=== PATIENT | female | born 1935 | race Caucasian/White ===

== ENCOUNTER 2016-09-09 17:21 | Inpatient (IN) | payer OTHER ==
[~2016-09-09] VITALS: Ht 162.6 cm; Wt 70.3 kg
[2016-09-09 17:38] VITALS: BP 113/66; PULSE 75; RESP 20; TEMP 96.9; O2SAT 93
--- NOTE | 2016-09-09 17:45 | NUR ---
Blood drawn and sent to lab by phleb using 2 pt identifiers.
--- NOTE | 2016-09-09 17:47 | NUR ---
Patient triaged and placed in waiting room. VSS and patient appears in no acute distress at this time. Accompanied by son, awaiting available bed, and MD notified of need for MSE.
[2016-09-09 17:58] LABS: EOSINOPHILS # (AUTO) 0.3 K/uL (0.0-0.4); MEAN CORPUSCULAR HEMOGLOBIN 29 pg (27-31)
[2016-09-09 18:02] LABS: BASOPHILS # (AUTO) 0.2 K/uL (0.0-0.2); MONOCYTES # (AUTO) 0.7 K/uL (0.0-1.0); WHITE BLOOD COUNT (AUTO) 8.6 K/uL (4.8-10.8)
[2016-09-09 18:05] LABS: BASOPHILS % (AUTO) 2.5 % (0.0-2.0); EOSINOPHILS % (AUTO) 3.3 % (0.0-4.0); HEMATOCRIT 44.5 % (36-48); HEMOGLOBIN 13.9 g/dL (12.0-16.0); LYMPHOCYTES # (AUTO) 0.6 K/uL (1.0-5.5); LYMPHOCYTES % (AUTO) 6.7 % (20.5-51.5); MEAN CORPUSCULAR HGB CONC 31 % (32-36); MEAN CORPUSCULAR VOLUME 93 fL (79.0-98.0); MONOCYTES % (AUTO) 8.1 % (1.7-9.3); NEUTROPHILS # (AUTO) 6.8 K/uL (1.8-7.7); NEUTROPHILS % (AUTO) 79.4 % (40.0-70.0); RED BLOOD CELL COUNT(AUTO) 4.76 MIL/uL (4.2-6.2); RED CELL DISTRIBUTION WIDTH 16.5 % (9.0-15.0)
[2016-09-09 18:07] LABS: CALCIUM 9.8 mg/dL (8.4-11.0); CREATININE 1.71 mg/dL (0.55-1.30); GLUCOSE 104 mg/dL (70-99); POTASSIUM 3.9 mmol/L (3.5-5.1); SODIUM SERUM 157 mmol/L (136-145); UREA NITROGEN, BLOOD 38 mg/dL (8-21)
[2016-09-09 18:08] LABS: INR 1.3 (0.8-1.2); PROTHROMBIN TIME 14.7 SECS (9.5-12.5)
[2016-09-09 18:12] LABS: ALANINE AMINOTRANSFERASE 33 U/L (12-78); ALBUMIN 3.7 g/dL (3.4-4.8); ASPARTATE AMINOTRANSFERASE 29 U/L (10-37); TOTAL BILIRUBIN 1.3 mg/dL (0.0-1.0); TOTAL PROTEIN, SERUM 7.9 g/dL (6.4-8.3)
[2016-09-09 18:19] LABS: CHLORIDE 125 mmol/L (98-107)
[2016-09-09 18:20] LABS: ANION GAP < 3 (5-15)
--- NOTE | 2016-09-09 18:22 | NUR ---
Placed in room 03. Placed on front office coordinator, blood pressure machine and pulse oximeter. To gown for exam. Side rails up. Report given to Yuliana RN.
[2016-09-09 18:25] LABS: PLATELET COUNT (AUTO) 148 K/uL (130-430)
--- NOTE | 2016-09-09 18:30 | NUR ---
Patient AAOx2, forgetful. Patient seen with shortness of breath on room air, O2 saturation 95%, patient denies chest pain, cough. Patient's family provided a list of complaints given to triage nurse. Patient interviewed at bedside. Patient states she was "feeling weak" but is forgetful when answering questions. Lung sounds diminished bilaterally. Pitting edema noted in BLE 2+. Addendum: 09/09/16 at 1949 by MONET No other complaints/injuries per patient or noted.
--- NOTE | 2016-09-09 18:40 | NUR ---
Dr. Cabrera at bedside discussing plan of care with family
[2016-09-09] MEDS ORDERED: BUSP15TA3 PO (18:52)
[2016-09-09] MEDS ORDERED: SERT50TA12 PO (18:52)
[2016-09-09] MEDS ORDERED: DILT240C91 PO (18:52)
[2016-09-09] MEDS ORDERED: FURO-150 PO (18:52)
[2016-09-09] MEDS ORDERED: METO25TA6 PO (18:52)
[2016-09-09] MEDS ORDERED: FURO-149 PO (18:52)
[2016-09-09] MEDS ORDERED: APIX2.5T PO (18:52)
--- NOTE | 2016-09-09 18:52 | NUR ---
Medication reconciliation completed with information provided by son. Any prior medication reconciliation on file was reviewed and corrected.
[2016-09-09] MEDS ORDERED: NACL 0.9% 1,000 ML IV ONE (19:00)
[2016-09-09] MEDS ORDERED: cefTRIAXone 1 GM IVPB PREMIX 50 ML IV ONE (19:00)
--- NOTE | 2016-09-09 19:07 | NUR ---
Received report from MANISHA Ferrera. Care endorsed.
--- NOTE | 2016-09-09 19:08 | NUR ---
Attempted I&O carrillo catheter x2, unsuccessful. Patient unable to provide urine sample at this time. Endorsed to next shift nurse.
--- NOTE | 2016-09-09 19:10 | NUR ---
Patient AAO x3, laying in bed, RT at bedside, patient vital signs stable, HR: 110 and o2 sat 92%RA md aware. No acute distress noted. Patient unable to void at this time. Will continue to monitor.
[2016-09-09] MEDS ORDERED: LEVALBUTEROL HCL 0.63 MG/3 ML VIAL.NEB INH ONE (19:15)
[2016-09-09] MEDS ORDERED: PIPERACILLIN/TAZO 3.375 GM in NS 50 ML IV ONE (19:15)
[2016-09-09] MEDS ORDERED: IPRATROPIUM BROM 0.5 MG/2.5 ML VIAL.NEB (ATROVENT) INH ONE (19:15)
--- NOTE | 2016-09-09 19:20 | NUR ---
Patient unable to void, stating she would like to wait for to provide specimen because she "cannot go right now," made aware.
--- NOTE | 2016-09-09 19:25 | NUR ---
Patient son and at bedside. Family and patient refuse another straight cath to collect urine sample at this time. MD aware, patient unable to void. IV fluids running, patient tolerating well. Will continue to monitor.
[2016-09-09] MEDS ORDERED: PIPERACILLIN/TAZOBACTAM 3.375 GM/VIAL (ZOSYN) IV ONE ×2 (20:14)
--- NOTE | 2016-09-09 20:15 | NUR ---
Dr. Gonzalez called to ER for patient, to place her own admit orders.
[2016-09-09 20:20] VITALS: BP 124/93; PULSE 104; RESP 20; TEMP 96.5; O2SAT 96
[2016-09-09] MEDS ORDERED: DIGOXIN 0.5 MG/2 ML AMP IVP ONE (20:30)
--- NOTE | 2016-09-09 20:42 | NUR ---
Patient administered digoxin IVP, pre-cardiac and pos-cardiac strips in chart, patient tolerated well. Will continue to monitor. Family at bedside. No acute distress noted.
[2016-09-09] MEDS ORDERED: ONDANSETRON HCL 4 MG/2 ML VIAL IVP PRN (20:45)
--- NOTE | 2016-09-09 20:54 | NUR ---
Called floor for bed placement. Tele charge nurse to call back with room assignment.
[2016-09-09] MEDS ORDERED: SERTRALINE HCL 50 MG TABLET PO SCH (21:00)
--- NOTE | 2016-09-09 21:04 | NUR ---
Patient will be admitted to care of Dr. Gonzalez. Admitted to Tele unit. Will go to room 120. Belongings list completed. Summary report printed. Report will be given at bedside.
--- NOTE | 2016-09-09 21:04 | NUR ---
Transfer to tele room 120 via ACLS protocol. Licensed nurse present. IV present no signs or symptoms of infiltration.
[2016-09-09 21:06] VITALS: BP 124/93; PULSE 104; RESP 20; TEMP 96.5
--- NOTE | 2016-09-09 21:06 | NUR ---
Admission Note Received patient from ER with diagnosis of ATRIAL FIB. RVR. Initial Plan of Care discussed-patient verbalized understanding. Family at bedside. Oriented to room, call light, pain management and safety.
--- NOTE | 2016-09-09 21:15 | NUR ---
INITIAL ADMISSION NOTE Patient alert, awake, verbally responsive with confusion. No acute distress. respiration even and unlabored. Skin warm and dry to touch. IV intact to RAC, no redness, no swelling. Started to infusing NS bolus 2L from ER. Family at bedside. Discussed the safety issue, use call light when need help, and plan of care, verbally understanding. Safety measure maintained. Bed in low position, side rails up, bed alarm on. Call light within reached, Will continue to monitor.
[2016-09-09] MEDS: NACL 0.9% 1,000 ML IV SCH (21:26)
--- NOTE | 2016-09-09 21:29 | NUR ---
CONSULTATION PAGED REASON FOR CONSULTATION:AFIB WAS CONSULT CALLED?Y PERSON WHO WAS NOTIFIED:LINDA CONSULTING PHYSICIAN:KELLY CUNHA BACKHOE OPERATOR SPECIALTY:CARDIO BACKHOE OPERATOR PHONE NUMBER:[phone]
[2016-09-09] MEDS: METOPROLOL TARTRATE 25 MG TABLET PO SCH (22:26)
--- NOTE | 2016-09-09 22:41 | NUR ---
PAGED PAGED VIVIENNE CARDOZA AT [phone]KUSON DE LA TORRE TIM FEDERAL AID COORDINATOR.
--- NOTE | 2016-09-09 23:20 | NUR ---
ROUND Patient resting on the bed. No acute distress. Son at bedside. Safety measure maintained. Call light within reached. Continue to monitor.
[2016-09-10] VITALS (7 sets, daily range): BP systolic 103–149; BP diastolic 61–87; PULSE 64–120; RESP 19–32; TEMP 95.6–97.9; O2SAT 91–96
--- NOTE | 2016-09-10 00:10 | NUR ---
PATIENT TRIED TO GET OUT OF THE BED
--- NOTE | 2016-09-10 00:26 | NUR ---
2ND CALL OUT TO PAGED ERIKA TRAN AT [phone] SPOKE WITH MARIELLE.
--- NOTE | 2016-09-10 01:25 | NUR ---
PATIENT TRIED TO GET OUT OF BED AND SITTING ON THE EDGE OF THE BED
--- NOTE | 2016-09-10 02:20 | NUR ---
NOTE Changed patient. No acute distress. Patient stated that wanted to go home.
--- NOTE | 2016-09-10 03:40 | NUR ---
ROUND Patient resting on the bed. No acute distress. Respiration even and unlabored. Safety measure maintained. Call light within reached. Bed in low position, side rails up, bed alarm on. Will continue to monitor.
--- NOTE | 2016-09-10 04:10 | NUR ---
ROUND CIGARETTE PACKER assisted patient to the bathroom. No acute distress. Call light within reached. Continue to monitor.
--- NOTE | 2016-09-10 05:33 | NUR ---
ROUND Patient resting on the bed with eyes closed. No acute distress. Bed in low position, side rails up, bed alarm on. Continue to monitor.
[2016-09-10] MEDS ORDERED: DIGOXIN 0.5 MG/2 ML AMP IVP ONE (06:00)
--- NOTE | 2016-09-10 06:25 | NUR ---
IV RE-INSERTION: Patient pulled out IV, minimal bleeding noted. IV tip intact. Patient no acute distress. Restarted on left hand gauge 22 . Successful after one attempt. Will continue to monitor.
--- NOTE | 2016-09-10 06:35 | NUR ---
CLOSING NOTE Patient alert, awake, verbally responsive with confusion. No acute distress. Skin warm and dry to touch. IV intact to RAC, no redness, no swelling. All needs met. Hourly rounding during shift. Safety measure maintained. Bed in low position, side rails up, bed alarm on. Call light within reached. Noted patient with episode of anxiety and will increase the respiration rate and slight SOB during episode. Stayed with patient will calm her down. Will endorse to morning shift nurse.
[2016-09-10 07:02] LABS: ALANINE AMINOTRANSFERASE 32 U/L (12-78); ALBUMIN 3.3 g/dL (3.4-4.8); ANION GAP 5 (5-15); ASPARTATE AMINOTRANSFERASE 34 U/L (10-37); CALCIUM 8.9 mg/dL (8.4-11.0); CREATININE 1.64 mg/dL (0.55-1.30); GLUCOSE 99 mg/dL (70-99); POTASSIUM 3.8 mmol/L (3.5-5.1); TOTAL BILIRUBIN 1.2 mg/dL (0.0-1.0); TOTAL PROTEIN, SERUM 7.1 g/dL (6.4-8.3); UREA NITROGEN, BLOOD 35 mg/dL (8-21)
[2016-09-10 07:08] LABS: CHLORIDE 126 mmol/L (98-107); SODIUM SERUM 160 mmol/L (136-145)
--- NOTE | 2016-09-10 07:16 | NUR ---
CALLED ATTENDING MD DR NORMAN, RE: CRITICAL LABS, ORDER FOR ABG. SPOKE TO KAMLESH
--- NOTE | 2016-09-10 07:25 | NUR ---
NOTE Endorse to morning shift Deepthi regarding the critical lab result, sodium-160 and chloride-126. Dr. Brown called and waited to call back.
--- NOTE | 2016-09-10 07:53 | NUR ---
NEPHROLOGY CONSULT WAS CALLED TO DR DANIELS, DR POWELL PRODUCT TECHNICIAN, RE: ELEVATED BUN AND CREATININE. SPOKE TO MADELINE
[2016-09-10] MEDS ORDERED: DILTIAZEM HCL 25 MG/5 ML VIAL IVP PRN (08:00)
[2016-09-10] MEDS: D5W 1,000 ML IV SCH ×2 (08:00→20:58)
[2016-09-10] MEDS: NACL 0.9% 1,000 ML IV SCH (08:19)
[2016-09-10] MEDS: DILTIAZEM HCL 240 MG CAP.SR.24H PO SCH (08:20)
[2016-09-10] MEDS: ASPIRIN 81 MG TAB.CHEW PO SCH (08:20)
[2016-09-10] MEDS: METOPROLOL TARTRATE 25 MG TABLET PO SCH ×2 (08:21→20:51)
[2016-09-10] MEDS ORDERED: APIXABAN 2.5 MG TABLET PO SCH (09:00)
[2016-09-10] MEDS ORDERED: FUROSEMIDE 20 MG/2 ML VIAL IVP ONE (09:00)
[2016-09-10] MEDS ORDERED: busPIRone HCL 5 MG TABLET PO SCH (09:00)
--- NOTE | 2016-09-10 09:24 | NUR ---
Nutrition Update Venkat Scale 16 noted. Pt admitted for atr fibr w/ rapid ventricular response. Diet: 2 gm Na BMI: 27.1 kg/m2 RD to follow per nutrition care standards.
[2016-09-10] MEDS ORDERED: ALBUTEROL SULFATE 0.083% 2.5 MG/3 ML VIAL.NEB INH ONE (09:29)
[2016-09-10] MEDS: ALBUTEROL SULFATE 0.083% 2.5 MG/3 ML VIAL.NEB INH SCH ×4 (09:30→20:24)
--- NOTE | 2016-09-10 09:50 | NUR ---
DR POWELL IN TO SEE PATIENT. NEW ORDERS. D5W UP TO 100/HR. DC'Rosio ANDRADE.
[2016-09-10] MEDS: cefTRIAXone 1 GM in D5W 50 ML IV SCH (10:27)
[2016-09-10] MEDS: AZITHROMYCIN 500 MG in NS 250 ML IV SCH (10:27)
--- NOTE | 2016-09-10 11:05 | NUR ---
PATIENT IS SLEEPING, NO SIGNS OF DISTRESS BUT CONTINUES TO HAVE TACHYPNEA
--- NOTE | 2016-09-10 11:40 | NUR ---
CALLED PSYCH CONSULT TO DR FIELDS, RE: PSYCHOTIC, HALLUCINATIONS. SPOKE TO MADELINE
--- NOTE | 2016-09-10 12:38 | NUR ---
SISTER AT BEDSIDE ASSISTING PATIENT WITH LUNCH
[2016-09-10] MEDS: DIGOXIN 0.5 MG/2 ML AMP IVP SCH ×2 (13:48→21:43)
--- NOTE | 2016-09-10 15:35 | NUR ---
PATIENT IS SLEEPING. NOSE, FINGERS AND TOES ARE NO LONGER CYANOTIC. PT STILL HAS TACHYPNEA AND LABORED BREATHING BUT APPEARS CALM. SISTER, AND SON ARE AT BEDSIDE
--- NOTE | 2016-09-10 16:05 | NUR ---
SPOKE W DR POWELL RE CONSULTING PHYSICIAN ASKING ABOUT PT GETTING LASIX. PER DR POWELL HE DOES NOT WANT TO GIVE LASIX AT THIS TIME AND WILL CALL CONSULTING PHYSICIAN TO DISCUSS PT POC.
[2016-09-10 17:14] LABS: BASOPHILS # (AUTO) 0.1 K/uL (0.0-0.2); BASOPHILS % (AUTO) 1.3 % (0.0-2.0); EOSINOPHILS # (AUTO) 0.3 K/uL (0.0-0.4); EOSINOPHILS % (AUTO) 3.5 % (0.0-4.0); HEMATOCRIT 42.8 % (36-48); HEMOGLOBIN 13.3 g/dL (12.0-16.0); LYMPHOCYTES # (AUTO) 0.7 K/uL (1.0-5.5); LYMPHOCYTES % (AUTO) 10.1 % (20.5-51.5); MEAN CORPUSCULAR HEMOGLOBIN 29 pg (27-31); MEAN CORPUSCULAR HGB CONC 31 % (32-36); MONOCYTES # (AUTO) 0.4 K/uL (0.0-1.0); MONOCYTES % (AUTO) 6.1 % (1.7-9.3); NEUTROPHILS # (AUTO) 5.7 K/uL (1.8-7.7); RED BLOOD CELL COUNT(AUTO) 4.52 MIL/uL (4.2-6.2); RED CELL DISTRIBUTION WIDTH 16.6 % (9.0-15.0); WHITE BLOOD COUNT (AUTO) 7.2 K/uL (4.8-10.8)
[2016-09-10 17:18] LABS: MEAN CORPUSCULAR VOLUME 95 fL (79.0-98.0)
[2016-09-10 17:35] LABS: PLATELET COUNT (AUTO) 130 K/uL (130-430)
--- NOTE | 2016-09-10 17:48 | NUR ---
PATIENT IS SLEEPING. ASSISTED WITH DINNER BY WHO REMAINS AT BEDSIDE. PT IS EASY TO AWAKEN. NO ACUTE DISTRESS. CONTINUES TO BREATHE HEAVILY. IV INFUSING AT 100ML/HR PER ORDERS. LUNG SOUNDS: CRACKLES AND RALES. MD IS AWARE. NON-PITTING EDEMA TO ALL EXTREMITIES.
--- NOTE | 2016-09-10 20:00 | NUR ---
NOTES; SEEN PT IN BED, RESTING QUIETLY, EASILY AROUSED. VITAL SIGNS STABLE, AFEBRILE. RESPIRATION EVEN AND UNLABORED WHILE SLEEPING. NO APPARENT DISTRESS NOTED. GENERALIZED EDEMA NOTED. ORDERED IVF INFUSING WELL ON THE LEFT HAND, GAUGE 22, PATENT. NO SIGNS OF INFECTION NOTED ON IV SITE. NO FACIAL GRIMACING OF PAIN NOTED. BED LOCKED AND IN LOW POSITION, SIDE RAILS UP X3, BED ALARM ON. CALL LIGHT WITHIN REACH. ROOM CLOSE TO NURSES STATION. SAFETY MEASURES IN PROGRESS. FAMILY AT BEDSIDE WITH GOOD SUPPORT. WILL CONTINUE TO MONITOR.
[2016-09-10] MEDS: APIXABAN 2.5 MG TABLET PO SCH (20:50)
--- NOTE | 2016-09-10 21:02 | NUR ---
NOTES; IN BED ,AWAKE , LABORED BREATHING NOTED. ON O2 AT 2L VIA NASAL CANNULAR, O2 SAT 95%. BP FOUND TO BE 140/92, HR 139. SCHEDULED LOPRESSOR AND ELIQUIS PO ADMINISTERED. PT TOLERATED MEDICATION WELL. FAMILY AT BEDSIDE WITH GOOD SUPPORT. WILL CONTINUE TO MONITOR.
--- NOTE | 2016-09-10 22:00 | NUR ---
NOTES; RECHECKED BP, 139/86, HR IN HIGH 90'S. SOB ON EXERTION. ON O2 VIA NASAL CANNULAR. O2 SAT 93-95%. HUASBAND AT BEDSIDE WITH GOOD SUPPORT. SAFETY MEASURES IN PROGRESS.
[2016-09-11] VITALS (9 sets, daily range): BP systolic 115–161; BP diastolic 73–91; PULSE 71–110; RESP 20–23; TEMP 97.2–98.6; O2SAT 92–97; Ht 162.6 cm; Wt 70.3 kg
--- NOTE | 2016-09-11 | NUR ---
NOTES; AWAKE, CONFUSED. BED NICHOLS PROVIDED BY MARTHA GANDHI. PT VOIDED FREELY. GIGI CARE PROVIDED BY [place]. REPOSITIONED FOR COMFORT. SAFETY MEASURES I PROGRESS.
[2016-09-11] MEDS: ALBUTEROL SULFATE 0.083% 2.5 MG/3 ML VIAL.NEB INH SCH ×7 (00:25→23:06)
--- NOTE | 2016-09-11 00:55 | NUR ---
NOTES; PT IS RESTLESS, TAKING NASAL CANNULAR OFF AND ATTEMPTING TO PULL OUT IV. BP 132/85, HR IS IN THE 110'S. DR NORMAN PAGED TO BE NOTIFIED. WAITING FOR MD TO CALL BACK.
--- NOTE | 2016-09-11 00:55 | NUR ---
PAGED: I PAGED DR. NORMAN @ [phone] I SPOKE WITH AMIE CALDERON I CALLED SECOND TIME @ 0111 I SPOKE WITH JOSÉ MIGUEL CALDERON NUMBER I CALLED [phone]
--- NOTE | 2016-09-11 01:24 | NUR ---
DR. NORMAN CALLED BACK @ [phone]
[2016-09-11] MEDS ORDERED: LORazepam 1 MG TABLET PO ONE (01:30)
--- NOTE | 2016-09-11 01:31 | NUR ---
NOTES; DR. NORMAN CALLED BACK, SPOKE WITH MD AND INFORMED HER ABOUT PT TELEMETRY RHYTHM AFIB IN THE 110'S AND PT RESTLESS. ATIVAN 0.5MG PO X1 ORDERED.
--- NOTE | 2016-09-11 01:52 | NUR ---
NOTES; ATIVAN ADMINISTERED FOR RESTLESSNESS.
--- NOTE | 2016-09-11 01:52 | NUR ---
NOTES; ATIVAN 0.5MG PO ADMINISTERED.
--- NOTE | 2016-09-11 03:00 | NUR ---
NOTES; PT IS STILL RESTLESS. MADE COMFORTABLE, BP 141/89, HR 110'S. RESPI 22, O2 SAT 92-94% ON 2L OF O2. SAFETY MEASURES IN PROGRESS. WILL CONTINUE TO MONITOR.
--- NOTE | 2016-09-11 04:50 | NUR ---
NOTES; IV ON THE LEFT HAND OCCLUDED. RESTARTED NEW IV ON THE LEFT FOREARM, GAUGE 22. PATENT. OLD IV REMOVED WITH CATHETER TIP INTACT. DRESSING APPLIED.
[2016-09-11] MEDS: D5W 1,000 ML IV SCH (06:00)
--- NOTE | 2016-09-11 06:05 | NUR ---
NOTES; IVF DISCONTINUED PER MD ORDER.
--- NOTE | 2016-09-11 06:27 | NUR ---
NOTES; PT IS CONFUSED, RESTLESS. PULLING NASAL CANNULAR AND IV LINE. BP FOUND TO BE 152/100, TELEMETRY RHYTHM AFIB ,HR 115'S. RESPIRATION 26, O2 SAT 93-96% ON 2L OF O2, LABORED BREATHING. LUNG SOUNDS CRACKLES. REPOSITIONED UP IN BED. RN COVERING AND CHARGE NURSE AT BEDSIDE. DR AMA PAK. WAITING FOR MD TO CALL BACK.
--- NOTE | 2016-09-11 06:30 | NUR ---
Attempted/unable to page Dr Dunlap called , was immediately put on hold by exchange (call was not answered). Hung up, will call admitting MD (Dr Brown)
--- NOTE | 2016-09-11 06:41 | NUR ---
Paged Dr Brown, [facility]
--- NOTE | 2016-09-11 06:54 | NUR ---
NOTES DR POWELL CALLED. UPDATED MD WITH PT STATUS CHANGE. NEW ORDER OF LASIX 20MG IVP X1, CARDIZEM 5MG IVP X1 NOW, BNP, AND TO STOP IVF. RN COVERING AND CHARGE NURSE INFORMED.
[2016-09-11 06:57] LABS: BASOPHILS % (AUTO) 0.6 % (0.0-2.0); EOSINOPHILS # (AUTO) 0.3 K/uL (0.0-0.4); EOSINOPHILS % (AUTO) 3.3 % (0.0-4.0); HEMATOCRIT 43.7 % (36-48); HEMOGLOBIN 13.7 g/dL (12.0-16.0); LYMPHOCYTES # (AUTO) 0.5 K/uL (1.0-5.5); LYMPHOCYTES % (AUTO) 6.9 % (20.5-51.5); MEAN CORPUSCULAR HEMOGLOBIN 29 pg (27-31); MEAN CORPUSCULAR HGB CONC 31 % (32-36); MEAN CORPUSCULAR VOLUME 93 fL (79.0-98.0); MONOCYTES # (AUTO) 0.5 K/uL (0.0-1.0); MONOCYTES % (AUTO) 6.2 % (1.7-9.3); NEUTROPHILS # (AUTO) 6.3 K/uL (1.8-7.7); PLATELET COUNT (AUTO) 117 K/uL (130-430); RED BLOOD CELL COUNT(AUTO) 4.68 MIL/uL (4.2-6.2); RED CELL DISTRIBUTION WIDTH 15.9 % (9.0-15.0); WHITE BLOOD COUNT (AUTO) 7.6 K/uL (4.8-10.8)
[2016-09-11] MEDS ORDERED: DILTIAZEM HCL 25 MG/5 ML VIAL IVP ONE (07:00)
[2016-09-11] MEDS ORDERED: FUROSEMIDE 20 MG/2 ML VIAL IVP ONE ×2 (07:00→10:00)
[2016-09-11 07:11] LABS: ALANINE AMINOTRANSFERASE 31 U/L (12-78); ALBUMIN 3.2 g/dL (3.4-4.8); ANION GAP 4 (5-15); ASPARTATE AMINOTRANSFERASE 31 U/L (10-37); CALCIUM 9.2 mg/dL (8.4-11.0); CREATININE 1.12 mg/dL (0.55-1.30); GLUCOSE 134 mg/dL (70-99); POTASSIUM 3.5 mmol/L (3.5-5.1); SODIUM SERUM 152 mmol/L (136-145); TOTAL BILIRUBIN 1.3 mg/dL (0.0-1.0); TOTAL PROTEIN, SERUM 7.1 g/dL (6.4-8.3); UREA NITROGEN, BLOOD 26 mg/dL (8-21)
--- NOTE | 2016-09-11 07:20 | NUR ---
NOTES; CARDIZEM IVP AND LASIX IVP ADMINISTERED BY RN COVERING PER MD ORDER.
[2016-09-11 07:27] LABS: CHLORIDE 121 mmol/L (98-107)
--- NOTE | 2016-09-11 07:35 | NUR ---
Paged Dr Brown, [facility]
--- NOTE | 2016-09-11 07:50 | NUR ---
NOTES; DR NORMAN CALLED, SPOKE WITH MD. INFORMED MD ABOUT PT STATUS CHANGE. CLARIFIED WITH SCHEDULED CARDIZEM ORDER TO BE GIVEN AT 0900. MD STATED YES TO GIVEN SCHEDULE DOSE AT 0900. CRITICAL CHLORIDE RESULTS INFORMED . NEW ORDERS RECEIVED . REPORT GIVEN TO INCOMING NURSE.
--- NOTE | 2016-09-11 08:00 | NUR ---
AM Initial Notes Pt aaox1, restless and confused but follows commands. No complain of pain or discomfort. Wheezing and slightly labored breathing noted. Pt on O2 via nasal canula @ 2.5L. school bus monitor in place reading uncontrolled A-fib 107. Generalized edema noted. Lasix iv administered half an hour ago. Generalized edema noted. Johnson catheter inserted. Repositioned and kept comfortable. Fall and safety precautions enforced with ID band, bed alarm armed, 3 rails up and close to nurse's station. Will monitor.
[2016-09-11 08:04] LABS: ABG TOTAL HEMOGLOBIN 14.6 G/dL (12.0-18.0); BLOOD GAS BASE EXCESS 0.2 mmol/L (-3.0-3.0); BLOOD GAS COHb% 0.9 % (0.5-1.5); BLOOD GAS PH 7.426 (7.350-7.450); BLOOD O2Hb% 90.6 % (94.0-97.0)
[2016-09-11 08:05] LABS: BLOOD GAS HHB 8.3 % (0.0-6.0)
[2016-09-11] MEDS: cefTRIAXone 1 GM in D5W 50 ML IV SCH (08:18)
[2016-09-11 08:33] LABS: BILIRUBIN,URINE NEGATIVE (NEGATIVE); BLOOD, URINE NEGATIVE (NEGATIVE); CLARITY/URINE CLEAR (CLEAR); COLOR,URINE YELLOW (YELLOW); GLUCOSE,URINE NEGATIVE (NEGATIVE); KETONES,URINE NEGATIVE (NEGATIVE); LEUKOCYTE ESTERASE ,URINE NEGATIVE (NEGATIVE); NITRITE, URINE NEGATIVE (NEGATIVE); PROTEIN URINE NEGATIVE (NEGATIVE)
--- NOTE | 2016-09-11 09:00 | NUR ---
Dr. Kevin [place] doing rounds. Plan of care discussed with family at bedside.
[2016-09-11] MEDS: AZITHROMYCIN 500 MG in NS 250 ML IV SCH (09:21)
--- NOTE | 2016-09-11 10:00 | NUR ---
Rounds Pt asleep but tried to awaken and went back to sleep. Refused to eat breakfast. Unable to medicate 0900 scheduled meds due to patient not fully awake. Mild labored breathing and shortness of breath noted. Repositioned and kept comfortable. Will monitor.
[2016-09-11] MEDS: APIXABAN 2.5 MG TABLET PO SCH ×2 (10:24→20:59)
[2016-09-11] MEDS: DILTIAZEM HCL 240 MG CAP.SR.24H PO SCH (10:24)
[2016-09-11] MEDS: buPROPion HCL 100 MG TABLET.SA PO SCH (10:25)
[2016-09-11] MEDS: ASPIRIN 81 MG TAB.CHEW PO SCH (10:25)
[2016-09-11] MEDS: METOPROLOL TARTRATE 25 MG TABLET PO SCH ×2 (10:25→20:59)
--- NOTE | 2016-09-11 12:00 | NUR ---
Rounds Pt asleep but awakened to shaking. Refused lunch and went back to sleep. No distress noted. Repositioned and kept comfortable. Will monitor.
--- NOTE | 2016-09-11 13:37 | NUR ---
Rounds Pt asleep. No signs of facial grimacing for pain or discomfort. No sob, difficulty breathing or distress noted. O2 via nasal canula @ 2.5L in place. Repositioned and kept comfortable. Will monitor.
--- NOTE | 2016-09-11 15:24 | NUR ---
Rounds Pt asleep. No significant changes noted. Will continue to monitor.
--- NOTE | 2016-09-11 17:16 | NUR ---
Rounds Pt asleep but awakened by shaking. Pt states she is tired and went back to sleep. No sob or difficulty breathing noted. Repositioned and kept comfortable. Will monitor.
--- NOTE | 2016-09-11 18:30 | NUR ---
Closing notes Pt asleep. Tried to awaken to eat dinner but went back to sleep and refused to eat dinner. No sob, difficulty breathing or distress noted. Repositioned and kept comfortable. Will endorse care to incoming nurse.
--- NOTE | 2016-09-11 19:55 | NUR ---
NOTES; RECEIVED PT IN BED, SLEEPING. OPEN EYES TO TOUCH THEN FALLS ASLEEP AGAIN. NO ACUTE DISTRESS NOTED. NO SOB OR NASAL FLARING NOTED. PT APPEARED TO BE COMFORTABLE. VITAL SIGNS STABLE. PT IS ON CONTINUOUS HEALTH EVALUATOR ,RHYTHM IS AFIB. VITAL SIGNS STABLE, AFEBRILE. IV SALINE LOCK ON THE LEFT FOREARM, GAUGE 22, PATENT. NO SIGNS OF INFECTION NOTED ON IV SITE. RT ARM EDEMATOUS NOTED. LEFT ARM BRUISES NOTED. NO FACIAL GRIMACING OF PAIN NOTED. REPOSITIONED FOR COMFORT. CALL LIGHT WITHIN REACH. BED LOCKED AND IN LOW POSITION, SIDE RAILS UP X3, BED ALARM ON. WILL CONTINUE TO MONITOR.
[2016-09-11] MEDS: methylPREDNISolone SOD SUCC 40 MG/ML VIAL IVP SCH (20:51)
--- NOTE | 2016-09-11 21:04 | NUR ---
NOTES; SCHEDULED PO MEDICATION CRUSHED AND ADMINISTERED WITH APPLE SAUCE.
--- NOTE | 2016-09-11 21:40 | NUR ---
NOTES; MOUTH CARE AND BED BATH GIVEN BY MEERA GANDHI. LINEN CHANGED. SAFETY MEASURES IN PROGRESS.
--- NOTE | 2016-09-11 22:00 | NUR ---
NOTES; Pt appeared to be sleeping. No signs of facial grimacing for pain or discomfort. No sob, difficulty breathing or distress noted. O2 via nasal canula @ 2L in place. O2 sat 96%. Repositioned and kept comfortable. Will monitor.
[2016-09-12] MEDS: ALBUTEROL SULFATE 0.083% 2.5 MG/3 ML VIAL.NEB INH SCH ×6 (03:05→23:00)
[2016-09-12 04:40] VITALS: BP 132/88; PULSE 63; RESP 21; TEMP 97.4; O2SAT 93
--- NOTE | 2016-09-12 06:18 | NUR ---
NOTES; SLEEPING, EASILY AROUSED, ANSWERS QUESTION APPROPRIATELY. NO ACUTE DISTRESS NOTED. NO SOB OR NASAL FLARING NOTED. PT APPEARED TO BE COMFORTABLE. VITAL SIGNS STABLE. PT IS ON CONTINUOUS SENIOR ORACLE APPLICATIONS DEVELOPER ,RHYTHM IS AFIB. IV SALINE LOCK ON THE LEFT FOREARM, GAUGE 22, PATENT. NO FACIAL GRIMACING OF PAIN NOTED. DENIES ANY PAIN ATV THSI TIME. REPOSITIONED FOR COMFORT. CALL LIGHT WITHIN REACH. BED LOCKED AND IN LOW POSITION, SIDE RAILS UP X3, BED ALARM ON. CALL LIGHT WITHIN REACH. WILL CONTINUE TO MONITOR.
[2016-09-12 06:34] LABS: BASOPHILS % (AUTO) 0.2 % (0.0-2.0); EOSINOPHILS % (AUTO) 0.3 % (0.0-4.0); HEMATOCRIT 44.1 % (36-48); HEMOGLOBIN 13.8 g/dL (12.0-16.0); LYMPHOCYTES # (AUTO) 0.3 K/uL (1.0-5.5); LYMPHOCYTES % (AUTO) 4.5 % (20.5-51.5); MEAN CORPUSCULAR HEMOGLOBIN 29 pg (27-31); MEAN CORPUSCULAR HGB CONC 31 % (32-36); MEAN CORPUSCULAR VOLUME 93 fL (79.0-98.0); MONOCYTES # (AUTO) 0.1 K/uL (0.0-1.0); MONOCYTES % (AUTO) 1.9 % (1.7-9.3); NEUTROPHILS # (AUTO) 5.2 K/uL (1.8-7.7); NEUTROPHILS % (AUTO) 93.1 % (40.0-70.0); PLATELET COUNT (AUTO) 109 K/uL (130-430); RED BLOOD CELL COUNT(AUTO) 4.73 MIL/uL (4.2-6.2); WHITE BLOOD COUNT (AUTO) 5.6 K/uL (4.8-10.8)
[2016-09-12 06:55] LABS: ALANINE AMINOTRANSFERASE 27 U/L (12-78); ALBUMIN 2.8 g/dL (3.4-4.8); ANION GAP 7 (5-15); ASPARTATE AMINOTRANSFERASE 27 U/L (10-37); CHLORIDE 116 mmol/L (98-107); GLUCOSE 126 mg/dL (70-99); POTASSIUM 3.7 mmol/L (3.5-5.1); SODIUM SERUM 150 mmol/L (136-145); TOTAL BILIRUBIN 1.5 mg/dL (0.0-1.0); TOTAL PROTEIN, SERUM 6.6 g/dL (6.4-8.3); UREA NITROGEN, BLOOD 19 mg/dL (8-21)
--- NOTE | 2016-09-12 08:00 | NUR ---
AM Initial Notes Pt aaox2 with confusion and forgetfulness. No complaints of pain or discomfort. No sob, difficulty breathing or distress noted. O2 via nasal canula @ 2L in place. metal buggy operator in place. IV to left forearm #22g saline locked patent and flushing. Johnson catheter in place with mary kate colored urine noted to bag. Re-educated about fall and safety precaution. Reposition and kept comfortable. Call light within reach. Will monitor.
[2016-09-12 08:14] VITALS: BP 113/64; PULSE 70; RESP 20; TEMP 97.6; O2SAT 93
[2016-09-12] MEDS: cefTRIAXone 1 GM in D5W 50 ML IV SCH (08:22)
[2016-09-12] MEDS: AZITHROMYCIN 500 MG in NS 250 ML IV SCH (09:12)
[2016-09-12] MEDS: buPROPion HCL 100 MG TABLET.SA PO SCH (09:16)
[2016-09-12] MEDS: DILTIAZEM HCL 240 MG CAP.SR.24H PO SCH (09:16)
[2016-09-12] MEDS: APIXABAN 2.5 MG TABLET PO SCH ×2 (09:16→21:07)
[2016-09-12] MEDS: ASPIRIN 81 MG TAB.CHEW PO SCH (09:17)
[2016-09-12] MEDS: METOPROLOL TARTRATE 25 MG TABLET PO SCH ×2 (09:17→21:07)
[2016-09-12] MEDS: methylPREDNISolone SOD SUCC 40 MG/ML VIAL IVP SCH ×2 (09:19→22:33)
--- NOTE | 2016-09-12 10:00 | NUR ---
Rounds Pt asleep. No signs of facial grimacing for pain or discomfort. No distress noted. Repositioned and kept comfortable. will monitor.
[2016-09-12 11:50] VITALS: BP 120/79; PULSE 75; RESP 20; TEMP 98.1; O2SAT 95
--- NOTE | 2016-09-12 12:00 | NUR ---
Rounds Pt awake about to eat lunch. No complaints of pain or discomfort. No distress noted. Repositioned and kept comfortable. Will monitor.
--- NOTE | 2016-09-12 14:00 | NUR ---
Rounds Pt asleep. No significant changes noted. Will monitor.
--- NOTE | 2016-09-12 16:00 | NUR ---
Rounds Pt awake resting in bed with no complaints of pain or discomfort. No sob, difficulty breathing or distress noted. O2 via nasal canula @ 2L in place. Repositioned and kept comfortable. Encouraged to call for assistance. Fall and safety precautions enforced. Will monitor.
[2016-09-12 16:14] VITALS: BP 122/74; PULSE 75; RESP 20; TEMP 98.3; O2SAT 97
--- NOTE | 2016-09-12 18:37 | NUR ---
Closing notes Pt awake with at bedside. No significant changes noted. Repositioned and kept comfortable. Will endorse care to incoming nurse.
[2016-09-12] MEDS: D5W 1,000 ML IV SCH (19:28)
[2016-09-12 19:30] VITALS: BP 134/82; PULSE 53; RESP 16; TEMP 97.9; O2SAT 95
--- NOTE | 2016-09-12 19:30 | NUR ---
notes received the pt from the day nurse,pt a/a/ox2 .family member is at the bedside.pt denies pain and sob.o2 via nc in place at 2l/min. monitor in place and shows a fib.iv intact to lt forearm ,no rednes or swelling noted.carrillo catheter intact and draining clear yellow urine.call light within reach ,safety measures in progress.will continue to monitor.
--- NOTE | 2016-09-12 20:29 | NUR ---
notes pt found trying to get out of the bed.iv found out.pt confused .assisted back to bed reoriented to time and place.bed alarm is on.will re insert the iv soon.
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
--- NOTE | 2016-09-12 23:36 | NUR ---
notes pt awake ,remains confused.instructed to stay in bed,educated on the use of the call light.continue to monitor.
[2016-09-12 23:43] VITALS: BP 130/85; PULSE 105; RESP 22; TEMP 97.4
--- NOTE | 2016-09-13 01:30 | NUR ---
notes pt sleeping.bed alarm is on side rails are up.call light within reach.continue to monitor.
[2016-09-13] MEDS: ALBUTEROL SULFATE 0.083% 2.5 MG/3 ML VIAL.NEB INH SCH ×6 (03:00→23:00)
--- NOTE | 2016-09-13 03:12 | NUR ---
notes pt remains asleep,call light within reach.continue to monitor.
[2016-09-13 03:44] VITALS: BP 142/79; PULSE 66; RESP 21; TEMP 97.6; O2SAT 93
--- NOTE | 2016-09-13 05:04 | NUR ---
notes pt awake ,confused.keeps pulling the o2 off.and is trying to pull out the iv.pt repositioned,o2 reapplied.pt educated on the iv tubbing and was instructed not to pull on the tubbing.call light within reach.continue to monitor.
--- NOTE | 2016-09-13 06:32 | NUR ---
CLOSING NOTES PT AWAKE ,REMAINS CONFUSED.WILL ENDORSE THE CARE OF THE PT TO THE DAY NURSE.
--- NOTE | 2016-09-13 06:48 | NUR ---
NOTES PORT.CXR TAKEN LABS DRAWN BY THE DEICER KIT ASSEMBLER.
[2016-09-13 06:52] LABS: ALANINE AMINOTRANSFERASE 29 U/L (12-78); ALBUMIN 2.9 g/dL (3.4-4.8); ANION GAP 5 (5-15); ASPARTATE AMINOTRANSFERASE 26 U/L (10-37); CALCIUM 9.5 mg/dL (8.4-11.0); CHLORIDE 114 mmol/L (98-107); CREATININE 1.12 mg/dL (0.55-1.30); GLUCOSE 142 mg/dL (70-99); POTASSIUM 3.5 mmol/L (3.5-5.1); SODIUM SERUM 147 mmol/L (136-145); TOTAL BILIRUBIN 1.2 mg/dL (0.0-1.0); TOTAL PROTEIN, SERUM 7.1 g/dL (6.4-8.3); UREA NITROGEN, BLOOD 32 mg/dL (8-21)
[2016-09-13 07:00] LABS: BASOPHILS % (AUTO) 0.2 % (0.0-2.0); EOSINOPHILS % (AUTO) 0.1 % (0.0-4.0); HEMATOCRIT 46.3 % (36-48); HEMOGLOBIN 14.2 g/dL (12.0-16.0); LYMPHOCYTES # (AUTO) 0.3 K/uL (1.0-5.5); LYMPHOCYTES % (AUTO) 2.6 % (20.5-51.5); MEAN CORPUSCULAR HEMOGLOBIN 28 pg (27-31); MEAN CORPUSCULAR HGB CONC 31 % (32-36); MEAN CORPUSCULAR VOLUME 92 fL (79.0-98.0); MONOCYTES # (AUTO) 0.3 K/uL (0.0-1.0); MONOCYTES % (AUTO) 3.2 % (1.7-9.3); NEUTROPHILS # (AUTO) 9.7 K/uL (1.8-7.7); NEUTROPHILS % (AUTO) 93.9 % (40.0-70.0); PLATELET COUNT (AUTO) 118 K/uL (130-430); RED BLOOD CELL COUNT(AUTO) 5.02 MIL/uL (4.2-6.2); RED CELL DISTRIBUTION WIDTH 16.1 % (9.0-15.0)
[2016-09-13 07:24] LABS: WHITE BLOOD COUNT (AUTO) 10.3 K/uL (4.8-10.8)
[2016-09-13 08:00] VITALS: BP 149/96; PULSE 59; RESP 18; TEMP 97.1; O2SAT 97
--- NOTE | 2016-09-13 08:00 | NUR ---
OPENING NOTE: RECEIVED REPORT FROM NIGHT NURSE. PATIENT IS RESTING COMFORTABLY IN BED. NO S/S OF DISTRESS OR SOB. PATIENT IS AWAKE BUT CONFUSED. VITAL SIGNS WNL, ASSESSMENT COMPLETE. IV IS PATENT AND INFUSING. ARMENTA DRAINING TO GRAVITY WITH LUCA COLORED URINE. CALL LIGHT IN REACH, BED IN LOWEST POSITION, AND WILL CONTINUE TO MONITOR.
[2016-09-13] MEDS: methylPREDNISolone SOD SUCC 40 MG/ML VIAL IVP SCH ×2 (08:47→22:04)
[2016-09-13] MEDS: cefTRIAXone 1 GM in D5W 50 ML IV SCH (08:47)
[2016-09-13] MEDS: buPROPion HCL 100 MG TABLET.SA PO SCH (08:47)
[2016-09-13] MEDS: ASPIRIN 81 MG TAB.CHEW PO SCH (08:47)
[2016-09-13] MEDS: METOPROLOL TARTRATE 25 MG TABLET PO SCH ×2 (08:48→20:40)
[2016-09-13] MEDS: DILTIAZEM HCL 240 MG CAP.SR.24H PO SCH (08:48)
[2016-09-13] MEDS: APIXABAN 2.5 MG TABLET PO SCH ×2 (08:48→20:40)
[2016-09-13] MEDS: AZITHROMYCIN 500 MG in NS 250 ML IV SCH (09:39)
--- NOTE | 2016-09-13 10:00 | NUR ---
NOTE: PATIENT IS RESTING COMFORTABLY IN BED. NO S/S OF DISTRESS OR SOB. PATIENT IS AWAKE BUT SLIGHTLY CONFUSED. FAMILY AT BEDSIDE. CALL LIGHT IN REACH, BED IN LOWEST POSITION, AND WILL CONTINUE TO MONITOR.
[2016-09-13 11:27] VITALS: BP 134/82; PULSE 77; RESP 19; TEMP 97.1; O2SAT 96
--- NOTE | 2016-09-13 11:56 | NUR ---
MD DR. NORMAN MAKING ROUNDS FOR DR. CARRION TODAY. SHE ORDERS A PHYSICAL THERAPY EVALUATION AND TO DC THE ARMENTA, ORDERS NOTED AND CARRIED OUT. DR. NORMAN ALSO SAID TO TAKE PATIENT OFF OXYGEN AND IF SHE DESATURATES TO PUT HER BACK ON. O2 WAS REMOVED AND PATIENT TOLERATING WELL.
--- NOTE | 2016-09-13 12:00 | NUR ---
NOTE: PATIENT IS RESTING COMFORTABLY IN BED. NO S/S OF DISTRESS OR SOB. PATIENT IS AWAKE AND ALERT. EATING LUNCH WITH HER . CALL LIGHT IN REACH, BED IN LOWEST POSITION, AND WILL CONTINUE TO MONITOR.
[2016-09-13] MEDS: D5W 1,000 ML IV SCH (13:42)
--- NOTE | 2016-09-13 13:45 | NUR ---
ARMENTA D/C. PATIENT TOLERATED WELL. EMPTIED OUT 400 CC OF DARK LUCA URINE.
--- NOTE | 2016-09-13 14:00 | NUR ---
NOTE: PATIENT IS RESTING COMFORTABLY IN BED. NO S/S OF DISTRESS OR SOB. PATIENT IS AWAKE AND ALERT WITH CONFUSION. CALL LIGHT IN REACH, BED IN LOWEST POSITION, AND WILL CONTINUE TO MONITOR.
[2016-09-13 15:32] VITALS: BP 131/62; PULSE 76; RESP 19; TEMP 96.3; O2SAT 93
--- NOTE | 2016-09-13 16:00 | NUR ---
NOTE: PATIENT IS RESTING COMFORTABLY IN BED. NO S/S OF DISTRESS OR SOB. PATIENT IS AWAKE AND ALERT, WITH SOME CONFUSION. IS AT BEDSIDE. CALL LIGHT IN REACH, BED IN LOWEST POSITION, AND WILL CONTINUE TO MONITOR.
[2016-09-13 16:49] VITALS: PULSE 76
--- NOTE | 2016-09-13 18:38 | NUR ---
CLOSING NOTE: PATIENT IS RESTING COMFORTABLY IN BED. NO S/S OF DISTRESS OR SOB. PATIENT IS AWAKE BUT CONFUSED. AT BEDSIDE. CALL LIGHT IN REACH, BED IN LOWEST POSITION, AND WILL GIVE REPORT TO NIGHT NURSE.
[2016-09-13 19:30] VITALS: BP 135/91; PULSE 74; RESP 20; TEMP 97.7; O2SAT 94
--- NOTE | 2016-09-13 19:30 | NUR ---
notes received the pt from the day nurse.family are at the bedside.pt confused.monitor in place and shows a fib .o2 via nc in place at 2l/min.iv to lt ac intact.no redness or swelling.bed alarm is on air mattress working well.call light within reach,safety measures in progress.continue to monitor.
--- NOTE | 2016-09-13 20:57 | NUR ---
notes pt sleeping.awaken for 2100 medications.pt with no complaints but is still confused.continue to monitor.
--- NOTE | 2016-09-13 21:24 | NUR ---
NOTES PT VERY CONFUSED AND TRYING TO GET OUT OF THE BED.REORIENTED TO TIME AND PLACE MULT.TIMES.CONTINUE TO MONITOR.
--- NOTE | 2016-09-13 23:24 | NUR ---
NOTES PT SLEEPING,NO DISTRESS NOTED.CALL LIGHT WITHIN REACH.CONTINUE TO MONITOR.
[2016-09-14] VITALS (7 sets, daily range): BP systolic 125–159; BP diastolic 77–90; PULSE 65–76; RESP 16–22; TEMP 96.9–98; O2SAT 93–97
--- NOTE | 2016-09-14 01:29 | NUR ---
notes pt sleeping.no distress or dyspnea noted.continue to monitor.
[2016-09-14] MEDS: ALBUTEROL SULFATE 0.083% 2.5 MG/3 ML VIAL.NEB INH SCH ×6 (03:00→23:27)
--- NOTE | 2016-09-14 03:31 | NUR ---
NOTES PT AWAKE AND REMOVED THE NC AND SHEETS,TRYING TO GET OUT OF THE BED.PT ASSISTED BACK TO BED AND WAS REORIENTED TO TIME AND PLACE.
--- NOTE | 2016-09-14 05:16 | NUR ---
notes pt resting with eyes closed.call light within reach continue to monitor.
[2016-09-14 06:50] LABS: ALANINE AMINOTRANSFERASE 33 U/L (12-78); ASPARTATE AMINOTRANSFERASE 30 U/L (10-37); CALCIUM 9.8 mg/dL (8.4-11.0); CHLORIDE 112 mmol/L (98-107); CREATININE 0.89 mg/dL (0.55-1.30); GLUCOSE 169 mg/dL (70-99); POTASSIUM 3.3 mmol/L (3.5-5.1); SODIUM SERUM 144 mmol/L (136-145); UREA NITROGEN, BLOOD 33 mg/dL (8-21)
[2016-09-14 06:56] LABS: ANION GAP > 3 (5-15)
[2016-09-14 07:06] LABS: BASOPHILS % (AUTO) 0.1 % (0.0-2.0); EOSINOPHILS % (AUTO) 0.1 % (0.0-4.0); HEMATOCRIT 46.7 % (36-48); HEMOGLOBIN 14.4 g/dL (12.0-16.0); LYMPHOCYTES # (AUTO) 0.3 K/uL (1.0-5.5); LYMPHOCYTES % (AUTO) 2.5 % (20.5-51.5); MEAN CORPUSCULAR HEMOGLOBIN 29 pg (27-31); MEAN CORPUSCULAR HGB CONC 31 % (32-36); MEAN CORPUSCULAR VOLUME 92 fL (79.0-98.0); MONOCYTES # (AUTO) 0.4 K/uL (0.0-1.0); MONOCYTES % (AUTO) 3.4 % (1.7-9.3); NEUTROPHILS # (AUTO) 9.9 K/uL (1.8-7.7); NEUTROPHILS % (AUTO) 93.9 % (40.0-70.0); PLATELET COUNT (AUTO) 141 K/uL (130-430); RED BLOOD CELL COUNT(AUTO) 5.05 MIL/uL (4.2-6.2); WHITE BLOOD COUNT (AUTO) 10.6 K/uL (4.8-10.8)
--- NOTE | 2016-09-14 07:45 | NUR ---
AM ROUNDS PATIENT RESTING IN BED, AWAKE, ALERT AND ORIENTED X1 REORIENTED TO PLACE TIME AND EVENT, PATIENT IS VERY FORGETFUL, KARI PAIN, ASSESSMENT COMPLETE, IV SITE IS PATENT WITH NO SIGNS OF INFILTRATION, EDUCATED THE PATIENT MOTH PROOFER LIGHT SYSTEM AND TO CALL FOR ANY ASSISTANCE, PATIENT VERBALIZES UNDERSTANDING AT THIS TIME, BED IN LOWEST POSITION, THREE SIDE RAILS UP, BED ALARM ON, BED CLOSE TO NURSE'S STATION, FALL AND ASPIRATION PRECAUTIONS IN PLACE, WILL CONTINUE TO MONITOR.
[2016-09-14] MEDS: ASPIRIN 81 MG TAB.CHEW PO SCH (08:42)
[2016-09-14] MEDS: methylPREDNISolone SOD SUCC 40 MG/ML VIAL IVP SCH ×2 (08:42→22:14)
[2016-09-14] MEDS: buPROPion HCL 100 MG TABLET.SA PO SCH (08:42)
[2016-09-14] MEDS: APIXABAN 2.5 MG TABLET PO SCH ×2 (08:42→20:50)
[2016-09-14] MEDS: DILTIAZEM HCL 240 MG CAP.SR.24H PO SCH (08:42)
[2016-09-14] MEDS: METOPROLOL TARTRATE 25 MG TABLET PO SCH ×2 (08:43→20:50)
[2016-09-14] MEDS: cefTRIAXone 1 GM in D5W 50 ML IV SCH (08:43)
--- NOTE | 2016-09-14 08:50 | NUR ---
RN ROUNDS PATIENT RESTING IN BED, EYES CLOSED, BREATHING IS EVEN AND UNLABORED, EASY TO AROUSE, EDUCATED THE PATIENT AND FAMILY MEMBER AT BEDSIDE ON MEDICATIONS AND POTENTIAL SIDE EFFECTS, PATIENT NODDED AND FAMILY MEMBER VERBALIZED UNDERSTANDING, CRUSHED MEDICATIONS AND PLACED IN APPLESAUCE, PATIENT TOLERATED WELL, FIRST IV ANTIBIOTIC HUNG AND INFUSING WELL, WILL FOLLOW UP WITH SECOND IV ANTIBIOTIC ONCE FIRST ONE IS COMPLETE, PATIENT HAS NO OTHER NEEDS AT THIS TIME, BED IN LOWEST POSITION, THREE SIDE RAILS UP, BED ALARM ON, BED CLOSE TO NURSE'S STATION, FALL AND ASPIRATION PRECAUTIONS IN PLACE, WILL CONTINUE TO MONITOR.
[2016-09-14] MEDS: AZITHROMYCIN 500 MG in NS 250 ML IV SCH (10:01)
--- NOTE | 2016-09-14 10:01 | NUR ---
RN ROUNDS PATIENT RESTING IN BED, EYES CLOSED, BREATHING IS EVEN AND UNLABORED, NO SIGNS OF DISTRESS, EASY TO AROUSE, EDUCATED THE PATIENT ON IV ANTIBIOTIC AND POTENTIAL SIDE EFFECTS, PATIENT VERBALIZED UNDERSTANDING, IV SITE IS PATENT AND INFUSING WELL, NO OTHER NEEDS AT THIS TIME, BED IN LOWEST POSITION, THREE SIDE RAILS UP, BED ALARM ON, BED CLOSE TO NURSE'S STATION, FALL AND ASPIRATION PRECAUTIONS IN PLACE, WILL CONTINUE TO MONITOR.
--- NOTE | 2016-09-14 10:30 | NUR ---
DR CARRION ROUNDS HERE TO SEE THE PATIENT AT THE BEDSIDE, ORDERED FOR PULMONARY CONSULT AND STAT ABG, WILL FOLLOW UP.
--- NOTE | 2016-09-14 10:39 | NUR ---
CONSULT PULMONARY PNEUMONIA DR SINGER [phone] S/W [facility] OFFICE @[phone]
[2016-09-14] MEDS ORDERED: IPRATROPIUM BROM 0.5 MG/2.5 ML VIAL.NEB (ATROVENT) INH PRN (10:45)
[2016-09-14] MEDS ORDERED: ALBUTEROL SULFATE 0.083% 2.5 MG/3 ML VIAL.NEB INH PRN (10:45)
[2016-09-14 10:50] LABS: BLOOD GAS BASE EXCESS 3.5 mmol/L (-3.0-3.0); BLOOD GAS PH 7.399 (7.350-7.450)
[2016-09-14 10:51] LABS: ABG TOTAL HEMOGLOBIN 15.2 G/dL (12.0-18.0); BLOOD GAS HHB 3.6 % (0.0-6.0); BLOOD O2Hb% 94.9 % (94.0-97.0)
[2016-09-14] MEDS: D5W 1,000 ML IV SCH (10:54)
[2016-09-14] MEDS: IPRATROPIUM BROM 0.5 MG/2.5 ML VIAL.NEB (ATROVENT) INH SCH ×4 (11:18→23:26)
--- NOTE | 2016-09-14 11:26 | NUR ---
RN ROUNDS PATIENT RESTING IN BED, EYES CLOSED, BREATHING IS EVEN AND UNLABORED, NO SIGNS OF DISTRESS, RECEIVING A BREATHING TREATMENT AT THIS TIME, TOLERATING WELL, FAMILY AT BEDSIDE, NO OTHER NEEDS AT THIS TIME,BED IN LOWEST POSITION, THREE SIDE RAILS UP, BED ALARM ON, BED CLOSE TO NURSE'S STATION, FALL AND ASPIRATION PRECAUTIONS IN PLACE, WILL CONTINUE TO MONITOR.
--- NOTE | 2016-09-14 13:05 | NUR ---
RN ROUNDS PATIENT RESTING IN BED, EATING LUNCH, ASPIRATION PRECAUTIONS IN PLACE, FAMILY AT THE BEDSIDE, DISCUSSED PLAN OF CARE, NO OTHER NEEDS AT THIS TIME, BED IN LOWEST POSITION, THREE SIDE RAILS UP, BED ALARM ON, BED CLOSE TO NURSE'S STATION, FALL PRECAUTIONS IN PLACE, CALL LIGHT NEXT TO THE PATIENT'S HAND.
--- NOTE | 2016-09-14 13:36 | NUR ---
PHYSICAL THERAPY CO-SIGN The Physical Therapy Progress Notes documented by Lepidopterist have been reviewed. I CONCUR W/MATERIAL HANDLING CREW SUPERVISOR NOTE; CONT PER TX PLAN Reviewed/Co-Signed by: Sylvia Multani PT Documentation Done by: GAEL THAKKAR MATERIAL HANDLING CREW SUPERVISOR Addendum: 09/14/16 at 1337 by Sylvia Multani PT Amended: Links added.
[2016-09-14] MEDS ORDERED: FUROSEMIDE 20 MG/2 ML VIAL IVP ONE (13:45)
--- NOTE | 2016-09-14 13:50 | NUR ---
DR SINGER ROUNDS UPDATES GIVEN, WILL FOLLOW UP WITH ANY NEW ORDERS.
[2016-09-14] MEDS ORDERED: POTASSIUM CHLORIDE 20 MEQ TAB.PRT.SR PO ONE (14:00)
--- NOTE | 2016-09-14 14:11 | NUR ---
RN ROUNDS PATIENT RESTING IN BED, EYES CLOSED BREATHING IS EVEN AND UNLABORED, NO SIGNS OF DISTRESS, ADRIANA CRTS AT THE BEDSIDE SPEAKING WITH THE FAMILY AT THIS TIME, PATIENT BED IN LOWEST POSITION, THREE SIDE RAILS UP, BED ALARM ON, BED CLOSE TO NURSE'S STATION, FALL AND ASPIRATION PRECAUTIONS IN PLACE, CALL LIGHT WITHIN REACH, WILL CONTINUE TO MONITOR.
--- NOTE | 2016-09-14 15:33 | NUR ---
RN ROUNDS PATIENT RESTING IN BED, AWAKE, BEING ASSISTED BY TOSHIA GANDHI TO BE CHANGED AT THIS TIME, PATIENT DENIES PAIN, DENIES DIFFICULTY BREATHING AT THIS TIME, FAMILY IS AT THE BEDSIDE, BED IN LOWEST POSITION, THREE SIDE RAILS UP, BED ALARM ON, BED CLOSE TO NURSE'S STATION, FALL AND ASPIRATION PRECAUTIONS IN PLACE, WILL CONTINUE TO MONITOR.
--- NOTE | 2016-09-14 17:00 | NUR ---
RN ROUNDS PATIENT RESTING IN BED, SPEAKING WITH FAMILY AT THE BEDSIDE, PATIENT DENIES PAIN, DENIES DIFFICULTY BREATHING, NO OTHER NEEDS AT THIS TIME, BED IN LOWEST POSITION, THREE SIDE RAILS UP, BED ALARM ON, BED CLOSE TO NURSE'S STATION, FALL AND ASPIRATION PRECAUTIONS IN PLACE, CALL LIGHT WITHIN REACH, WILL CONTINUE TO MONITOR.
--- NOTE | 2016-09-14 18:29 | NUR ---
CLOSING NOTES PATIENT RESTING IN BED, AWAKE, BEING ASSISTED WITH DINNER BY FAMILY, PATIENT TOLERATING WELL, ASPIRATION PRECAUTIONS IN PLACE, PATIENT DENIES PAIN, DENIES DIFFICULTY BREATHING, NO OTHER NEEDS AT THIS TIME, ALL NEEDS MET, BED IN LOWEST POSITION, THREE SIDE RAILS UP, BED ALARM ON, BED CLOSE TO NURSE'S STATION, FALL PRECAUTIONS IN PLACE, CALL LIGHT NEXT TO THE PATIENT'S HAND, WILL ENDORSE REPORT TO NOC SHIFT NURSE.
--- NOTE | 2016-09-14 19:37 | NUR ---
NOTES RECEIVED THE PT FROM THE DAY NURSE,PT SITTING UP ,SON IS AT THE BEDSIDE ,MORE ALERT TODAY.IV TO RT FOREARM INTACT,NO REDNESS OR SWELLING NOTED. MONITOR IN PLACE AND SHOWS A FIB.BED ALARM IS ON .[address] AT 2L/MIN. AIR MATTRESS WORKING WELL.CALL LIGHT WITHIN REACH ,SAFETY MEASURES IN PROGRESS.CONTINUE TO MONITOR.
--- NOTE | 2016-09-14 21:36 | NUR ---
NOTES PT CONFUSED, IS AT THE BEDSIDE.CONTINUE TO MONITOR.
--- NOTE | 2016-09-14 22:43 | NUR ---
NOTES PT INCONTINENT OF URINE ,PT CLEANED.AND REPOSITIONED WITH PILLOW SUPPORT.
--- NOTE | 2016-09-14 23:14 | NUR ---
NOTES PT RESTING QUIETLY ,NO DISTRESS NOTED
--- NOTE | 2016-09-14 23:55 | NUR ---
NOTES BREATHING TREATMENT GIVEN BY RESPIRATORY,PT VERY RESTLESS AND CONFUSED.BED ALARM IS ON .CONTINUE TO MONITOR.
--- NOTE | 2016-09-15 00:27 | NUR ---
NOTES PT VERY RESLESS AND CONFUSED,PULLS GOWN AND MONITOR LEADS OFF.ALSO PUTS HER FEET OVER THE SIDE RAIL TRYING TO GET OUT OF THE BED.CALL PLACED TO DR CARRION,DR POWELL IS INTEGRATED LOGISTICS SUPPORT MANAGER.NEW ORDERS TAKEN.
[2016-09-15] MEDS ORDERED: LORazepam 2 MG/ML VIAL IVP PRN (00:30)
[2016-09-15] MEDS ORDERED: LORazepam 2 MG/ML VIAL IVP ONE (00:30)
--- NOTE | 2016-09-15 01:10 | NUR ---
notes pt was medicated by the RN.and is now sleeping.bed alarm is on.continue to monitor.
[2016-09-15 01:26] VITALS: BP 154/93; PULSE 54; RESP 18; TEMP 97; O2SAT 93
[2016-09-15] MEDS: IPRATROPIUM BROM 0.5 MG/2.5 ML VIAL.NEB (ATROVENT) INH SCH ×5 (03:00→19:58)
[2016-09-15] MEDS: ALBUTEROL SULFATE 0.083% 2.5 MG/3 ML VIAL.NEB INH SCH ×5 (03:00→19:58)
--- NOTE | 2016-09-15 03:13 | NUR ---
notes pt sleeping.bed alarm is library circulation technician light within reack.continue to monitor.
[2016-09-15 04:00] VITALS: BP 155/88; PULSE 56; RESP 18; TEMP 97.2; O2SAT 93
--- NOTE | 2016-09-15 05:21 | NUR ---
notes dr mota here to see the pt.
--- NOTE | 2016-09-15 06:01 | NUR ---
closing notes pt awake but confused.incontinent of urine.pt changed. and repositioned.will endorse the care of the pt to the day nurse.
[2016-09-15 06:50] LABS: ANION GAP 3 (5-15); CALCIUM 9.8 mg/dL (8.4-11.0); CHLORIDE 109 mmol/L (98-107); CREATININE 0.86 mg/dL (0.55-1.30); GLUCOSE 157 mg/dL (70-99); POTASSIUM 4.1 mmol/L (3.5-5.1); SODIUM SERUM 143 mmol/L (136-145); UREA NITROGEN, BLOOD 30 mg/dL (8-21)
--- NOTE | 2016-09-15 07:57 | NUR ---
PATIENT ASLEEP, AFLUTTER ON MONITOR. CHANDRA FARIAS BREATHING NOTED. BREATHING SOUNDS DIMINISHED ON ALL QUADRANTS. IV ON LEFT FA, #22. MACHINE STUFFER AT BEDSIDE. CALL LIGHT IN PLACE, BED LOCKED AT LOWEST POSITION, WILL CONTINUE TO MONITOR.
[2016-09-15 08:00] VITALS: BP 130/78; PULSE 94; RESP 22; TEMP 97.8; O2SAT 96
[2016-09-15] MEDS: ASPIRIN 81 MG TAB.CHEW PO SCH (09:00)
[2016-09-15] MEDS: DILTIAZEM HCL 240 MG CAP.SR.24H PO SCH (09:00)
[2016-09-15] MEDS ORDERED: clonazePAM 0.5 MG TABLET PO SCH (09:00)
[2016-09-15] MEDS: METOPROLOL TARTRATE 25 MG TABLET PO SCH (09:00)
[2016-09-15] MEDS: buPROPion HCL 100 MG TABLET.SA PO SCH (09:00)
[2016-09-15] MEDS: APIXABAN 2.5 MG TABLET PO SCH (09:00)
--- NOTE | 2016-09-15 10:43 | NUR ---
Pt has order to DC home with hospice; SPECIAL DELIVERY MAIL CARRIER has contacted Anjelica ([phone]), insurance marketing specialist; SPECIAL DELIVERY MAIL CARRIER left a message for Anjelica to alert her of pt's dc order with hospice. SPECIAL DELIVERY MAIL CARRIER will remain available for support and will follow up as needed.
[2016-09-15] MEDS: cefTRIAXone 1 GM in D5W 50 ML IV SCH (11:05)
[2016-09-15] MEDS: methylPREDNISolone SOD SUCC 40 MG/ML VIAL IVP SCH (11:05)
[2016-09-15 12:48] VITALS: BP 132/89; PULSE 54; RESP 23; TEMP 96; O2SAT 97
--- NOTE | 2016-09-15 12:59 | NUR ---
VENKAT SCALE EVALUATION: Patient evaluated for a low Venkat score of 15. Patient was asleep, confused when awake, and received in a Beckley bed with an Isoflex TOY mattress with low air loss therapy initiated. Patient is unable to turn independently. Skin is fair; buttocks have redness from IAD; bilateral lower extremities have multiple dry scabs. Recommend reposition patient side to side only every 2 hours with pillow support and off-load pressure areas with pillows for pressure re-distribution. Elevate, off-load and float bilateral heels with pillows. Use moisture barrier cream on buttocks and other moisture susceptible areas QID and as needed for soiling. Perform skin care and monitor skin integrity Q shift. Maintain patient on a low air-loss mattress.
--- NOTE | 2016-09-15 13:18 | NUR ---
PT NOTES CHART REVIEWED AND CLEARED FOR PT BY RN. PATIENT IN SEMIFOWLER POSITION SLEEPING AND DIFFICULT TO AROUSE DESPITE MUCH TACTILE AND VERBAL STIMULUS TO ATTEMPT TO ATTAIN AROUSAL, BUT CONTINUES TO BE LETHARGIC. VITALS TAKEN 132/89, HR 60, SPO2 ON 2LPM 96%, RR 15. PATIENT SON ARRIVED AND STATED, "THANK YOU, BUT SHE WILL BE GOING ON HOSPICE". TRAY AND CALL LIGHT IN REACH, LEFT IN CARE OF PILLOWCASE CLEANER AT BEDSIDE. RN AWARE. PVEx1 Addendum: 09/15/16 at 1449 by Jenni Zaldivar PT PHYSICAL THERAPY CO-SIGN The Physical Therapy Progress Notes documented by Clinical Review Specialist have been reviewed. Reviewed/Co-Signed by: Jenni Zaldivar Documentation Done by: Edison Cordova PTA
--- NOTE | 2016-09-15 14:49 | NUR ---
PATIENT IS AWAKE, BUT STILL APPEARS CONFUSED. PATIENT IS ASSISTED IN TURNING AND REPOSITIONING. WILL CONTINUE TO MONITOR.
[2016-09-15 15:36] VITALS: BP 132/89; PULSE 97; RESP 24; TEMP 97.9; O2SAT 96
--- NOTE | 2016-09-15 15:57 | NUR ---
HCP/PA: Per TY Dejesus patient discharged home under [facility] via ambulance arranged by [facility].
--- NOTE | 2016-09-15 17:30 | NUR ---
RECEIVED CALL FOR AMULANCE THAT THE AMBULANCE WILL COME IN 2-2.5 HOURS LATE DUE TO EMERGENT DEMANDS FROM OTHER AREAS. CAM, THE OTR OWNER OPERATOR TRUCK DRIVER OF [place], IS NOTIFIED, AND WILL CALL FOR OTHER AMBULANCE TO COME IN.
[2016-09-15 17:40] VITALS: BP 142/75; PULSE 124; RESP 23; TEMP 96.4; O2SAT 93
--- NOTE | 2016-09-15 18:34 | NUR ---
CAM, REAL ESTATE ACCOUNTANT FROM [facility], STATES SHE COULD NOT FIND ANOTHER AMBULANCE THAT CAN COME IN EARLIER, AND WILL SPEAK TO PATIENT'S FAMILY MEMBER TO INFORM THE NEWS.
--- NOTE | 2016-09-15 19:47 | NUR ---
OPENING NOTE- RECEIVED REPORT FROM DAY NURSE AUBREY DYER. PT TO BED DISCHARGED HOME HOSPICE. PT'S SISTER AT BEDSIDE.
--- NOTE | 2016-09-15 20:56 | NUR ---
MD Called Dr Sanders web services professional for Dr Pagan was called to clarify and finalize discharge medications. stated "Hospice will take care of medications at home." Discharge to completed without med list and explained to the family by primary RN.
--- NOTE | 2016-09-15 21:00 | NUR ---
PT DISCHARGED DISCHARGED HOME ON HOSPICE. TRANSPORT BY AMBULANCE. SISTER GIVEN PAPERWORK AND VITAS PACKET. VS STABLE. IV IN LEFT AC PATENT AND INTACT.
== END 2016-09-15 22:16 | disposition hospice, home (50) | DRG 871 ==
LOC: SED 17:21 → STU 20:35 → SMU 09-15 21:12
PROVIDERS: ADMIT Internal Medicine Hospice and Palliative Medicine; ATTEND Internal Medicine Hospice and Palliative Medicine
DX: A41.9 Sepsis, unspecified organism (principal); J18.9 Pneumonia, unspecified organism; G93.41 Metabolic encephalopathy; N17.9 Acute kidney failure, unspecified; E87.0 Hyperosmolality and hypernatremia; F33.2 Major depressive disorder, recurrent severe without psychotic features; I50.30 Unspecified diastolic (congestive) heart failure; Z66 Do not resuscitate; E86.0 Dehydration; E78.1 Pure hyperglyceridemia; I48.0 Paroxysmal atrial fibrillation; F02.80 Dementia in other diseases classified elsewhere, unspecified severity, without behavioral disturbance, psychotic disturbance, mood disturbance, and anxiety; G30.9 Alzheimer's disease, unspecified; I11.0 Hypertensive heart disease with heart failure; F41.9 Anxiety disorder, unspecified; Z79.899 Other long term (current) drug therapy
CPT/HCPCS: 36415; 36600; 71010; 80048; 80053; 81003; 82803-TC; 83605; 83880; 84484; 85025; 85610-TC; 85730-TC; 87040-TC; 93005; 93306; 94640; 94760; 96361; 96365; 96375; 97110-GP; 97116-GP; 97530-GP; 99291; J0456; J0696; J1030; J1160; J1940; J2060; J2543; J3490; J7030; J7050; J7060